=== PATIENT | female | born 1960 | race Caucasian/White ===

== ENCOUNTER → 2020-02-29 10:53 | Outpatient (BNVA) | payer MEDICARE, MEDICAID, SELFPAY | PROVIDERS: PCP Family Medicine; Referring Provider Family Medicine; Visit Provider Internal Medicine | DX: G47.33 Obstructive sleep apnea (adult) (pediatric) (principal); R05 Cough; J98.4 Other disorders of lung | CPT/HCPCS: 99213 ==

== ENCOUNTER → 2020-03-20 10:54 | Outpatient (BNVA) | payer MEDICARE, MEDICAID, SELFPAY | PROVIDERS: PCP Family Medicine; Visit Provider Urology | DX: N30.10 Interstitial cystitis (chronic) without hematuria (principal); R35.0 Frequency of micturition; R32 Unspecified urinary incontinence | CPT/HCPCS: 81002; 99212 ==

== ENCOUNTER → 2022-05-28 14:22 | Outpatient (BNVA) | payer OTHER, MEDICAID, SELFPAY | PROVIDERS: PCP Family Medicine; Visit Provider Urology | DX: N30.10 Interstitial cystitis (chronic) without hematuria (principal); R35.0 Frequency of micturition; R39.15 Urgency of urination | CPT/HCPCS: 99212 ==

== ENCOUNTER 2022-11-26 11:15 | Outpatient (AMB) | payer MEDICARE, MEDICAID, SELFPAY ==
--- NOTE | 2022-11-26 08:38 | MHC.OFFVIS ---
Intake Intake Visit Reasons: Interstitial cystitis- 6m follow up Intake Note: Patient presents today for follow up interstitial cystitis Meds: Oxybutynin Antibiotic: nitrofurantoin, sulfamethoxazole, trimethoprim Blood Thinner: aspirin Critical Care Nurse Practitioner Required: No Accompanied by: Self / Same As Patient Allergies caffeine [From Norgesic] Allergy (Mild, Verified 11/26/22 11:41) RASH carisoprodol [From Soma] Allergy (Mild, Verified 11/26/22 11:41) NAUSEA/DIZZINESS fentanyl [From Duragesic] Allergy (Mild, Verified 11/26/22 11:41) RASH misoprostol [From Cytotec] Allergy (Mild, Verified 11/26/22 11:41) NAUSEA nitrofurantoin [From Macrodantin] Allergy (Mild, Verified 11/26/22 11:41) HIVES nortriptyline [Nortriptyline] Allergy (Mild, Verified 11/26/22 11:41) RASH orphenadrine [From Norgesic] Allergy (Mild, Verified 11/26/22 11:41) RASH oxycodone [From OxyContin] Allergy (Mild, Verified 11/26/22 11:41) HIVES/RESP ISSUES propranolol [From Inderal] Allergy (Mild, Verified 11/26/22 11:41) FINGER NUMBNESS sucralfate [From Carafate] Allergy (Mild, Verified 11/26/22 11:41) NAUSEA sulfamethoxazole [From Bactrim] Allergy (Mild, Verified 11/26/22 11:41) HIVES topiramate [From Topamax] Allergy (Mild, Verified 11/26/22 11:41) NUMBNESS FINGERS trimethoprim [From Bactrim] Allergy (Mild, Verified 11/26/22 11:41) HIVES acetaminophen [Percocet] Allergy (Unknown, Verified 11/26/22 11:41) unknown hydromorphone [From DILAUDID] Allergy (Unknown, Verified 11/26/22 11:41) HIVES/RESP ISSUES nickel [NICKEL] Allergy (Unknown, Verified 11/26/22 11:41) HIVES Sulfa (Sulfonamide Antibiotics) Allergy (Unknown, Verified 11/26/22 11:41) unknown HPI HPI Comments History of Present Illness Details Savanna is a 62-year-old female who presents to the office for 6-month follow-up of chronic interstitial cystitis. LV--05/28/22--Savanna is a 62-year-old female who is here for her follow-up for diagnosis of interstitial cystitis. In review of her chart she has had bladder installations as well as prior cystoscopy hydrodistention. She presents today with crutches, states had hip with complications and still recovering. She ran out of oxybutynin and wants to get a refill. Denies urinary incontinence, has urgency/frequency Denies dysuria, denies hematuria 11/26/22-- The patient was prescribed oxybutynin 15 mg QD. She is taking the medication with improvement in urinary symptoms. The patient states having orange color urine occasionally. I have encouraged her to increase her fluid intake Plan: Continue oxybutynin 15 mg QD. Follow-up after a year. [facility] Medical History Cough Cough Cough due to MARIE inhibitor FRANCHESCA (obstructive sleep apnea) FRANCHESCA (obstructive sleep apnea) Restrictive lung disease Restrictive lung disease Review of Systems Const All systems reviewed & are unremarkable except as noted in HPI and below Reports no additional complaints Eyes Reports no additional complaints ENT Reports no additional complaints Card Reports no additional complaints Resp Reports no additional complaints GI Reports no additional complaints Reports no additional complaints Musc Reports no additional complaints Skin/Breast Denies rash and Denies unusual bruising Neuro Reports no additional complaints Psych Reports no additional complaints Endo Reports no additional complaints Liu/Lymph Reports no additional complaints Aller/Immun Reports no additional complaints Office Procedures Post Void Residual Post Residual Void Post Void Residual (PVR): [id number] Void Residual by ultrasound Assessment & Plan Assessment & Plan (1) Urinary frequency: Code(s): R35.0 - Frequency of micturition (2) Interstitial cystitis: Code(s): N30.10 - Interstitial cystitis (chronic) without hematuria (3) Urgency of micturition: Code(s): R39.15 - Urgency of urination Plan Continue oxybutynin 15 mg QD. Follow-up after a year. Orders: Orders AMB Urinalysis Automated 11/26/22 Z13.9 - Encounter for screening, unspecified AMB Post Void Residual by ultrasound 11/26/22 R35.0 - Frequency of micturition Patient Instructions: The patient had an opportunity to ask questions regarding treatment plan. All questions were answered. Laboratory studies and physical exam results were discussed and reviewed in detail. No major barriers to understanding were identified. The patient expressed understanding and agreement with the above treatment plan. The patient is aware they should contact our office by phone for worsening of their current condition or the appearance of new symptoms. Compliance is encouraged with any medications and followup testing that is ordered. It is a privilege to be allowed the opportunity to participate in the urologic care of your patient. If you have any questions or concerns regarding treatment for the above conditions please do not hesitate to contact me. The office telephone contact is [phone]. This note is constructed in part using voice recognition software. While every effort has been made to ensure accuracy chicken vaccinator errors may have been included. Yours sincerely, Jose Alberto Tavares MD Coding Level of Care Code Est Pt Level 3 (92917) Diagnoses Urinary frequency R35.0 Interstitial cystitis N30.10 Urgency of micturition R39.15 CPT Codes Post Residual Void - PVR CPT Code: 03157-Uqeu Void Residual by ultrasound ([id number])
== END 2022-11-26 11:53 | disposition home or self-care (01) ==
PROVIDERS: PCP Family Medicine; Visit Provider Urology
DX: R35.0 Frequency of micturition (principal); N30.10 Interstitial cystitis (chronic) without hematuria; R39.15 Urgency of urination
CPT/HCPCS: 99213

== ENCOUNTER → 2022-11-26 11:19 | Outpatient (BNVA) | payer MEDICARE, MEDICAID, SELFPAY | PROVIDERS: PCP Family Medicine; Visit Provider Urology | DX: R35.0 Frequency of micturition (principal); R39.15 Urgency of urination; N30.10 Interstitial cystitis (chronic) without hematuria | CPT/HCPCS: 51798; 99212 ==